=== PATIENT | female | born 1960 | race Caucasian/White ===

== ENCOUNTER → 2016-11-22 | Outpatient (CLI) | payer OTHER ==
[~2016-11-22] MED LIST: AMLO10TA2 PO; AMLO2.5T PO; AMLO5TAB2 PO; ANAS1TAB PO; CALC600T4 PO; CHOL100018 PO; VENL75TA PO
[2016-11-22 13:26] LABS: HEMOGLOBIN 14.4 g/dL (11.7-16.4)
[2016-11-22 13:39] LABS: ASPARTATE AMINO TRANSFERASE 24 U/L (15-37); BLOOD UREA NITROGEN 16 mg/dL (7-18)
== END | disposition home or self-care (01) ==
LOC: STAR 12:30
PROVIDERS: ATTEND Surgery
DX: Z01.818 Encounter for other preprocedural examination (principal); Z90.49 Acquired absence of other specified parts of digestive tract
CPT/HCPCS: 36415; 71020; 80053; 85025; 93005

== ENCOUNTER 2017-03-06 10:14 | Day surgery (SDC) | payer OTHER ==
[~2017-03-06] VITALS: Ht 157.5 cm; Wt 69.0 kg
[~2017-03-06 10:14] MED LIST changes: +ASCO10004 PO; +OXYC-302 PO
[2017-03-06] MEDS ORDERED: LACTATED RINGERS 1,000 ML IV SCH (10:51)
[2017-03-06] MEDS ORDERED: FENTANYL PF 250 MCG/5ML ONE (11:09)
[2017-03-06] MEDS ORDERED: MIDAZOLAM 1 MG/ML, 2ML ONE (11:09)
[2017-03-06 11:17] VITALS: BP 144/87
[2017-03-06] MEDS ORDERED: BACITRACIN 50,000 UNIT ONE (11:52)
[2017-03-06] MEDS ORDERED: BUPIVACAINE/PF 0.5% ONE (11:52)
[2017-03-06] MEDS ORDERED: PROMETHAZINE 25 MG/ML, 1ML IV PRN (12:00)
[2017-03-06] MEDS ORDERED: OXYcodone 5 MG/5 ML ORAL.SOL UDC PO PRN (12:00)
[2017-03-06] MEDS ORDERED: ACETAMINOPHEN 325 MG TABLET PO PRN (12:00)
[2017-03-06] MEDS ORDERED: METOCLOPRAMIDE 5 MG/ML, 2ML IV PRN (12:00)
[2017-03-06] MEDS ORDERED: hydrALAzine 20 MG/ML, 1ML IV PRN (12:00)
[2017-03-06] MEDS ORDERED: LABETALOL 5MG/ML, 20ML IV PRN (12:00)
[2017-03-06] MEDS ORDERED: MEPERIDINE/PF 25MG/0.5ML IVPush PRN (12:00)
[2017-03-06] MEDS ORDERED: HYDROmorphone 1 MG/ML, 1ML IV PRN (12:00)
[2017-03-06] MEDS ORDERED: ONDANSETRON 2MG/ML, 2ML IVPush PRN (12:00)
[2017-03-06] MEDS ORDERED: PHENYLEPHRINE 10 MG/ML ONE (12:02)
[2017-03-06] MEDS ORDERED: NEOSTIGMINE 1 MG/ML, 10ML ONE (12:02)
[2017-03-06] MEDS ORDERED: GLYCOPYRROLATE 0.2MG/1ML ONE (12:02)
[2017-03-06] MEDS ORDERED: ONDANSETRON 2MG/ML, 2ML ONE (12:02)
[2017-03-06] MEDS ORDERED: CEFAZOLIN 1,000 MG ONE (12:02)
[2017-03-06] MEDS ORDERED: ROCURONIUM 10 MG/ML ONE (12:02)
[2017-03-06] MEDS ORDERED: DEXAMETHASONE 4 MG/ML, 1ML ONE (12:02)
[2017-03-06] MEDS ORDERED: PROPOFOL 10 MG/ML, 20ML ONE (12:02)
[2017-03-06] MEDS ORDERED: BACITRACIN 50,000 UNIT IRRIG ONE (12:20)
[2017-03-06] MEDS ORDERED: BUPIVACAINE/PF 0.5% INFIL ONE (12:20)
[2017-03-06] MEDS ORDERED: FENTANYL PF 100 MCG/2ML ONE (13:42)
[2017-03-06] MEDS ORDERED: ACETAMINOPHEN 650 MG/20.3 ML UDC ONE (13:42)
[2017-03-06] MEDS ORDERED: OXYcodone 5 MG/5 ML ORAL.SOL UDC ONE (13:43)
[2017-03-06] MEDS: FENTANYL PF 100 MCG/2ML IV PRN ×2 (13:46→14:35)
[2017-03-06] MEDS ORDERED: DIPHENHYDRAMINE 25 MG CAPSULE ONE (15:17)
[2017-03-06] MEDS ORDERED: DIPHENHYDRAMINE 25 MG CAPSULE PO ONE (15:30)
== END 2017-03-06 15:50 ==
LOC: OUT 10:14
PROVIDERS: ATTEND Plastic Surgery
DX: C50.919 Malignant neoplasm of unspecified site of unspecified female breast (principal); I10 Essential (primary) hypertension; Z88.6 Allergy status to analgesic agent; Z88.5 Allergy status to narcotic agent
CPT/HCPCS: 19342; 87070; 87075; 87205; C1729; C1789; J0690; J1100; J2250; J2370; J2405; J2704; J2710; J3010; J3490; J7120

== ENCOUNTER 2018-03-30 14:54 | Inpatient (IN) | payer OTHER ==
[~2018-03-30] VITALS: Ht 157.5 cm; Wt 66.5 kg
[~2018-03-30 14:54] MED LIST changes: +CHOL100012 PO; -CHOL100018 PO
[2018-03-30 15:28] LABS: BASOPHILS # (AUTO) 0.03 x10^3/uL (0-0.1); BASOPHILS % (AUTO) 0 % (0-1); EOSINOPHILS # (AUTO) 0.04 x10^3/uL (0-0.4); EOSINOPHILS % (AUTO) 1 % (1-7); LYMPHOCYTES # (AUTO) 1.69 x10^3/uL (1-3.4); LYMPHOCYTES % (AUTO) 19 % (22-44); MD NO; MEAN CORPUSCULAR HEMOGLOBIN 32.7 pg (27.0-34.8); MEAN CORPUSCULAR HGB CONC 34.8 g/dL (32.4-35.8); MEAN CORPUSCULAR VOLUME 93.9 fL (80-100); MEAN PLATELET VOLUME 7.5 fL (7.4-10.4); MONOCYTES % (AUTO) 6 % (2-9); NEUTROPHILS # (AUTO) 6.67 x10^3/uL (1.8-6.8); NEUTROPHILS % (AUTO) 75 % (42-75); PLATELET COUNT 254 x10^3/uL (130-400); RED BLOOD COUNT 4.53 x10^6/uL (3.82-5.3); RED CELL DISTRIBUTION WIDTH 13.4 % (9.6-15.2)
[2018-03-30] MEDS ORDERED: SODIUM CHLORIDE FLUSH 10ML SYR IVF ONE (15:30)
[2018-03-30 15:37] LABS: ALBUMIN 3.9 g/dL (3.4-5.0); ANION GAP 7 mmol/L (5-15); CALCIUM 8.9 mg/dL (8.5-10.1); CHLORIDE 110 mmol/L (98-107); CREATININE 0.76 mg/dL (0.55-1.02)
[2018-03-30 15:39] LABS: INTERNATIONAL NORMALIZED RATIO 1.13 (0.93-1.1)
[2018-03-30 15:44] LABS: PROTHROMBIN TIME 11.7 Seconds (9.6-11.5)
[2018-03-30] MEDS ORDERED: ASPIRIN 81 MG TABLET CHEW ONE (15:54)
[2018-03-30] MEDS ORDERED: ASPIRIN 325 MG TABLET PO ONE (16:00)
[2018-03-30] MEDS ORDERED: DOCUSATE 100 MG CAPSULE PO PRN (16:30)
[2018-03-30] MEDS ORDERED: hydrALAzine 20 MG/ML, 1ML IVPush PRN (16:30)
[2018-03-30] MEDS ORDERED: ONDANSETRON 2MG/ML, 2ML IVPush PRN (16:30)
[2018-03-30 16:44] VITALS: BP 172/65
[2018-03-30] MEDS: ENOXAPARIN 40 MG/0.4 ML SQ SCH (18:28)
[2018-03-30 20:11] VITALS: BP 172/65
[2018-03-30 20:17] VITALS: BP 171/76
[2018-03-30 20:18] VITALS: BP 146/88
[2018-03-30 20:19] VITALS: BP 163/91
[2018-03-30] MEDS: VENLAFAXINE 37.5MG TABLET PO SCH (20:50)
[2018-03-30] MEDS: ATORVASTATIN 40 MG TABLET PO SCH (20:50)
[2018-03-30] MEDS: AMLODIPINE 5 MG TABLET PO SCH (20:50)
[2018-03-30] MEDS: ANASTROZOLE 1 MG TABLET PO SCH (20:51)
[2018-03-31] VITALS (7 sets, daily range): BP systolic 137–152; BP diastolic 81–95
[2018-03-31 05:12] LABS: BASOPHILS # (AUTO) 0.03 x10^3/uL (0-0.1); BASOPHILS % (AUTO) 0 % (0-1); EOSINOPHILS # (AUTO) 0.06 x10^3/uL (0-0.4); EOSINOPHILS % (AUTO) 1 % (1-7); LYMPHOCYTES # (AUTO) 2.21 x10^3/uL (1-3.4); LYMPHOCYTES % (AUTO) 29 % (22-44); MD NO; MEAN CORPUSCULAR HEMOGLOBIN 32.6 pg (27.0-34.8); MEAN CORPUSCULAR HGB CONC 34.5 g/dL (32.4-35.8); MEAN CORPUSCULAR VOLUME 94.3 fL (80-100); MEAN PLATELET VOLUME 7.7 fL (7.4-10.4); MONOCYTES # (AUTO) 0.58 x10^3/uL (0.2-0.8); MONOCYTES % (AUTO) 8 % (2-9); NEUTROPHILS # (AUTO) 4.71 x10^3/uL (1.8-6.8); NEUTROPHILS % (AUTO) 62 % (42-75); PLATELET COUNT 242 x10^3/uL (130-400); RED BLOOD COUNT 4.66 x10^6/uL (3.82-5.3); RED CELL DISTRIBUTION WIDTH 13.4 % (9.6-15.2)
[2018-03-31 05:25] LABS: CALCIUM 9.2 mg/dL (8.5-10.1); CHLORIDE 110 mmol/L (98-107)
[2018-03-31] MEDS: ASPIRIN 325 MG TABLET PO SCH (05:36)
[2018-03-31 05:40] LABS: ANION GAP 7 mmol/L (5-15); CHOL/HDL RATIO 6.7; CHOLESTEROL, TOTAL 168 mg/dL (140-239); CREATININE 0.79 mg/dL (0.55-1.02); HDL CHOL % 15 % (28-40); HDL CHOLESTEROL (DIRECT) 25 mg/dL (40-60); LDL CHOLESTEROL,CALCULATED 93 mg/dL (54-169); LDL/HDL RATIO 3.7 (0.5-3.0); TRIGLYCERIDES 250 mg/dL (50-200); VLDL CHOLESTEROL 50 mg/dL (0-25)
[2018-03-31 05:49] LABS: HEMOGLOBIN A1C 5.3 % (4.2-6.3)
[2018-03-31] MEDS: VENLAFAXINE 37.5MG TABLET PO SCH ×2 (09:09→21:30)
[2018-03-31] MEDS ORDERED: OMNIPAQUE 350 MG/ML, 100ML BOTTLE ONE (10:55)
[2018-03-31] MEDS: ACETAMINOPHEN 325 MG TABLET PO PRN (13:49)
[2018-03-31] MEDS: ENOXAPARIN 40 MG/0.4 ML SQ SCH (17:03)
[2018-03-31] MEDS: ATORVASTATIN 40 MG TABLET PO SCH (21:29)
[2018-03-31] MEDS: AMLODIPINE 5 MG TABLET PO SCH (21:30)
[2018-03-31] MEDS: ANASTROZOLE 1 MG TABLET PO SCH (21:31)
[2018-04-01] VITALS (7 sets, daily range): BP systolic 125–159; BP diastolic 74–88
[2018-04-01] MEDS: ASPIRIN 325 MG TABLET PO SCH (05:13)
[2018-04-01 05:26] LABS: BASOPHILS # (AUTO) 0.03 x10^3/uL (0-0.1); BASOPHILS % (AUTO) 0 % (0-1); EOSINOPHILS # (AUTO) 0.07 x10^3/uL (0-0.4); EOSINOPHILS % (AUTO) 1 % (1-7); LYMPHOCYTES # (AUTO) 2.24 x10^3/uL (1-3.4); LYMPHOCYTES % (AUTO) 31 % (22-44); MD NO; MEAN CORPUSCULAR HEMOGLOBIN 32.7 pg (27.0-34.8); MEAN CORPUSCULAR HGB CONC 34.7 g/dL (32.4-35.8); MEAN CORPUSCULAR VOLUME 94.2 fL (80-100); MEAN PLATELET VOLUME 7.6 fL (7.4-10.4); MONOCYTES # (AUTO) 0.58 x10^3/uL (0.2-0.8); MONOCYTES % (AUTO) 8 % (2-9); NEUTROPHILS # (AUTO) 4.38 x10^3/uL (1.8-6.8); NEUTROPHILS % (AUTO) 60 % (42-75); PLATELET COUNT 244 x10^3/uL (130-400); RED BLOOD COUNT 4.68 x10^6/uL (3.82-5.3); RED CELL DISTRIBUTION WIDTH 13.3 % (9.6-15.2)
[2018-04-01 05:40] LABS: CALCIUM 9.1 mg/dL (8.5-10.1); CHLORIDE 108 mmol/L (98-107)
[2018-04-01 05:44] LABS: ANION GAP 7 mmol/L (5-15); CREATININE 0.75 mg/dL (0.55-1.02)
[2018-04-01] MEDS: VENLAFAXINE 37.5MG TABLET PO SCH (08:07)
[2018-04-01] MEDS: ACETAMINOPHEN 325 MG TABLET PO PRN (08:38)
[2018-04-01] MEDS ORDERED: ATOR40TA78 PO (11:18)
[2018-04-01] MEDS ORDERED: ASPI325T17 PO (11:18)
[2018-04-02 13:57] LABS: ANA SCREEN POSITIVE (Negative); ANTI-NUCLEAR ANTIBODY PATTERN HOMOGENOUS
== END 2018-04-01 13:55 | disposition home or self-care (01) | DRG 66 ==
LOC: ED 15:39 → 4EST 15:40 → ED 16:21 → DCLOUNGE 04-01 13:15
PROVIDERS: ADMIT Internal Medicine; ATTEND Internal Medicine
DX: I63.9 Cerebral infarction, unspecified (principal); H53.9 Unspecified visual disturbance; I10 Essential (primary) hypertension; E66.9 Obesity, unspecified; G47.33 Obstructive sleep apnea (adult) (pediatric); Z85.3 Personal history of malignant neoplasm of breast; Z90.13 Acquired absence of bilateral breasts and nipples; Z82.49 Family history of ischemic heart disease and other diseases of the circulatory system; Z88.5 Allergy status to narcotic agent; Z68.26 Body mass index [BMI] 26.0-26.9, adult; Z79.82 Long term (current) use of aspirin
CPT/HCPCS: 36415; 70496; 80048; 80061; 81241; 82040; 83036; 83735; 84443; 85025; 85301; 85305; 85306; 85307; 85610; 86038; 86039; 86146; 93005; 93306; 93880; J1650; Q9967